=== PATIENT | male | born 1950 | race Caucasian/White ===

== ENCOUNTER 2025-03-27 04:07 | Emergency (ER) | payer MEDICARE, OTHER ==
[~2025-03-27] VITALS: Ht 182.9 cm; Wt 77.1 kg
[2025-03-27] MEDS ORDERED: OXYMETAZOLINE HCL NASAL SPRAY 30 ML BOTTLE NS ONE (04:32)
[2025-03-27] MEDS ORDERED: TRANEXAMIC ACID 1,000 MG/10 ML VIAL ONE (04:32)
[2025-03-27] MEDS: OXYMETAZOLINE HCL NASAL SPRAY 30 ML BOTTLE NS ONE (04:40)
[2025-03-27] MEDS: TRANEXAMIC ACID 1,000 MG/10 ML VIAL NS ONE (04:40)
[2025-03-27 04:55] VITALS: BP 155/100; TEMP 98.6; O2SAT 96
== END 2025-03-27 05:06 | disposition left against medical advice (07) ==
LOC: ER 04:12
DX: R04.0 Epistaxis (principal)